=== PATIENT | female | born 1975 | race Caucasian/White ===

== ENCOUNTER 2024-05-20 10:25 | Emergency (ER) | payer OTHER, SELFPAY ==
[2024-05-20 10:36] VITALS: BP 121/76
--- NOTE | 2024-05-20 11:58 | ED.SKININJ ---
HPI-Injury
General
Chief Complaint: Eye Problems
Source: patient
Exam Limitations: none
Time Seen by Provider: 05/20/24 11:34
History of Present Illness-Injury
Initial Injury comments:
48-year-old female presents complaining of painful light sensitive red and discharge from both eyes. She states 2 days ago she was sweeping up pool chemicals. That evening she developed pain to both eyes with significant discharge. She saw the
urgent care that evening and they prescribed her tobramycin drops which she did not get filled to last evening. She had 1 dose of this and she notes worsening symptoms this morning. She does not wear contacts currently. She has a history of Lasix
procedure.
Past History
Past History
ED Past Medical History: Other (UTI)
ED Past Surgical History: (X 1)
Social History
Tobacco: Smoker
Alcohol: Occasional
Personal:
Living: with family
Phy Exam
Physical Exam
Physical Exam:
General: Uncomfortable appearing female no acute respiratory distress
HEENT: Both eyes examined with fluorescein stain after the eye was anesthetized with topical drops. Slit-lamp was used. There is diffuse stain uptake overlying the left cornea and to a lesser degree the right cornea. Lids were everted no foreign
body. No significant drainage at this time however there is significant conjunctival and scleral injection.
Skin: Surrounding skin is swollen but not erythematous
Course
Orders/Labs/Results
Orders:
Orders
05/20/24 11:56
Visual Acuity- Treatment ONCE
Vital Signs
Initial and Last Documented VS:
Initial Vital Signs
Temp Pulse BP Pulse Ox
98.2 F 71 121/76 100
05/20/24 10:36 05/20/24 10:36 05/20/24 10:36 05/20/24 10:36
Last Documented Vital Signs
Temp Pulse BP Pulse Ox
98.2 F 71 121/76 100
05/20/24 10:36 05/20/24 10:36 05/20/24 10:36 05/20/24 10:36
MDM/Problems Addressed
Differential Diagnosis Includes:
Bilateral eye discomfort. Exam more involved on the left than the right. Consider conjunctivitis versus corneal ulcer versus keratitis. Visual acuity was 20/40 out of the right 20/80 out of the left and 20/40 out of both
Message sent to ophthalmology for their input
*Critical Care Note
Total Time (30-74mins, 75-104mins- exclusive of procedures): Not Applicable
Update Note
Update Note:
Discussed with ophthalmology and will send patient over to their office for evaluation by the med aide there.
ED Attending Note
-
Portions of this chart may have been created with voice recognition software.� Occasional wrong word or��sound alike� substitutions may have occurred due to the inherent limitations of voice recognition software.
Discharge Plan
Departure
Patient Disposition: Home (Routine Discharge)
Date of Disposition: 05/20/24
Time of Disposition: 12:22
Patient with high blood pressure during this ER visit?: No
Discharge Problem:
Keratitis
Prescriptions:
No Action
minocycline [Minocin] 100 MG capsule
100 mg PO BID
hydrocodone-acetaminophen 1 TABLET tablet
1 - 2 tab PO Q4HPRN PRN (Reason: moderate to severe pain) Qty: 15 0RF
Referrals:
Fabio Mejía MD [Active] -
Michelle Lilly DO [Family Provider] -
Activity Restrictions/Additional Instructions:
Please go to the ophthalmology office at [phone] for an appointment for further evaluation. You may need to call your insurance company for referral. After you have received your referral, call [phone] to further discuss your appointment
Interventions
Interventions:
*ED COVID-19 Vaccine History Last Done: 05/20/24 10:39
Discharge Date and Time
Print Language: [place]
== END 2024-05-20 12:33 | disposition home or self-care (01) ==
LOC: EMR 10:25
PROVIDERS: EMERGENCY PHYSICIAN Emergency Medicine; FAMILY PHYSICIAN Family Medicine
DX: H16.9 Unspecified keratitis (principal); F17.200 Nicotine dependence, unspecified, uncomplicated; Z87.440 Personal history of urinary (tract) infections
CPT/HCPCS: 99282